=== PATIENT | female | born 1960 | race Caucasian/White ===

== ENCOUNTER 2024-12-22 22:32 | Outpatient (REF) | payer MEDICARE, MEDICAID, SELFPAY ==
[2024-12-22 21:12] LABS: HCT 39.6 % (36.0-46.0); HGB 13.1 g/dL (11.2-15.7); MCH 28.9 pg (27.0-33.0); MCHC 33.1 % (32.0-36.0); MCV 87 fL (80-95); MPV 9.2 fL (8.0-11.0); Platelet Count 327 10^3/uL (130-400); RBC 4.54 10^6/uL (3.93-5.22); RDW 13.4 % (11.7-14.6); WBC 5.21 10^3/uL (4.4-10.8)
[2024-12-22 21:16] LABS: ESR 3 mm/hr (0-30)
[2024-12-22 21:37] LABS: ALT 39 U/L (14-59); AST 27 U/L (15-37); Albumin 3.9 g/dL (3.4-5.0); Alkaline Phosphatase 105 U/L (46-116); Anion Gap 2.3 mmol/L (3-11); BUN 21 mg/dL (7-18); Bilirubin, Total 0.2 mg/dL (0.2-1.0); CO2 24.7 mmol/L (21.0-32.0); CREATININE 0.8 mg/dL (0.55-1.02); Calcium 9.2 mg/dL (8.5-10.1); Calculated LDL 76 mg/dL (<100); Chloride 108 mmol/L (98-107); Cholesterol 183 mg/dL (<200); Estimated GFR 82.74 (mL/min/1.73m2); Glucose 96 mg/dL (74-106); HDL Cholesterol 98 mg/dL (>or=50); Potassium 4.3 mmol/L (3.5-5.1); Sodium 135 mmol/L (136-145); TSH 1.35 uIU/mL (0.36-3.74); Total Protein 7.3 g/dL (6.4-8.2); Triglyceride 49 mg/dL (<150)
[2024-12-22 21:49] LABS: C-Reactive Protein < 0.50 mg/dL (<or=0.5)
[2024-12-23 17:03] LABS: Rheumatoid Factor 15.5 IU/mL (<12.0)
[2024-12-23 17:17] LABS: T4, Free 1.6 ng/dL (0.8-2.2)
[2024-12-23 17:38] LABS: T3,Free 3.5 pg/mL (2.8-5.3)
== END 2024-12-22 22:33 | disposition home or self-care (01) ==
LOC: NCHCN 22:32
PROVIDERS: PCP Internal Medicine; Visit Provider Physician Assistant
DX: M06.9 Rheumatoid arthritis, unspecified (principal); M79.7 Fibromyalgia; Z13.220 Encounter for screening for lipoid disorders
CPT/HCPCS: 80053; 80061; 85027; 85652; 84439; 84443; 84481; 86140; 86431

== ENCOUNTER 2025-06-27 16:07 | Outpatient (REF) | payer MEDICARE, MEDICAID, SELFPAY ==
[2025-06-27 21:33] LABS: HCT 38.9 % (36.0-46.0); HGB 13.1 g/dL (11.2-15.7); MCH 28.9 pg (27.0-33.0); MCHC 33.7 % (32.0-36.0); MCV 86 fL (80-95); MPV 9.2 fL (8.0-11.0); Platelet Count 305 10^3/uL (130-400); RBC 4.54 10^6/uL (3.93-5.22); RDW 13.2 % (11.7-14.6); RDW-SD 41.3 fL; WBC 4.64 10^3/uL (4.4-10.8)
[2025-06-27 21:34] LABS: ESR 4 mm/hr (0-30)
[2025-06-27 21:47] LABS: Iron 51 ug/dL (50-170)
[2025-06-28 00:09] LABS: ALT 40 U/L (14-59); AST 29 U/L (15-37); Albumin 3.9 g/dL (3.4-5.0); Alkaline Phosphatase 128 U/L (46-116); Anion Gap 8.0 mmol/L (3-11); BUN 22 mg/dL (7-18); Bilirubin, Total 0.3 mg/dL (0.2-1.0); CO2 28.0 mmol/L (21.0-32.0); Calcium 9.5 mg/dL (8.5-10.1); Chloride 104 mmol/L (98-107); Estimated GFR 82.23 (mL/min/1.73m2); Ferritin 144 ng/mL (8-252); Glucose 92 mg/dL (74-106); Potassium 4.7 mmol/L (3.5-5.1); Sodium 140 mmol/L (136-145); Total Protein 7.2 g/dL (6.4-8.2)
[2025-06-28 00:32] LABS: Vitamin D 25 Total 124 ng/mL (30-100)
== END 2025-06-27 16:08 | disposition home or self-care (01) ==
LOC: NCHCN 16:07
PROVIDERS: PCP Internal Medicine; Visit Provider Physician Assistant
DX: D50.9 Iron deficiency anemia, unspecified (principal)
CPT/HCPCS: 80053; 82306; 85027; 85652; 82728; 83540; 86431